=== PATIENT | female | born 1970 | race Native Hawaiian/Other Pacific Islander ===

== ENCOUNTER 2017-01-17 09:45 | Outpatient (CLI) | payer BC ==
[~2017-01-17 09:45] MED LIST: ALLEGRA-D 1212 HOUR PO; AMOX500C85 PO; CALCIU OR; FLUT0.05 NAS; MAGNESIUM300 MG OR; MUCINEX D1 TA1 OR; MULTI-DA1 PO; PEPCID40 MG PO; PRILOSEC10 MG OR; SUDAFED CH15 MG/5 ML PO
[2017-01-17 09:59] LABS: PLATELET COUNT 181 K/uL (152-353)
[2017-01-17 10:38] LABS: POTASSIUM 4.1 mmol/L (3.6-5.2); SODIUM 137 mmol/L (136-145)
== END 2017-01-17 10:45 | disposition home or self-care (01) ==
LOC: LABW 09:45
PROVIDERS: Internal Medicine Hematology & Oncology
DX: D64.9 Anemia, unspecified (principal)
CPT/HCPCS: 36415; 80053; 82728; 83540; 83550; 85027

== ENCOUNTER 2017-07-24 10:03 | Outpatient (CLI) | payer BC ==
[2017-07-24 11:12] LABS: POTASSIUM 3.8 mmol/L (3.6-5.2); SODIUM 139 mmol/L (136-145)
[2017-07-24 11:17] LABS: PLATELET COUNT 186 K/uL (152-353)
== END 2017-07-24 18:55 | disposition home or self-care (01) ==
LOC: LABW 10:03
PROVIDERS: Internal Medicine Hematology & Oncology
DX: E78.4 Other hyperlipidemia (principal); D64.9 Anemia, unspecified
CPT/HCPCS: 36415; 80053; 80061; 82728; 83540; 83550; 84443; 85027

== ENCOUNTER 2020-04-14 20:15 | Emergency (ER) | payer BC ==
[~2020-04-14] VITALS: Ht 167.6 cm; Wt 70.3 kg
[2020-04-14 21:54] VITALS: BP 141/68; TEMP 98
== END 2020-04-14 21:55 | disposition home or self-care (01) ==
LOC: ED 20:15
DX: R11.2 Nausea with vomiting, unspecified (principal); U07.1 COVID-19
CPT/HCPCS: 99282

== ENCOUNTER 2020-10-14 14:49 | Outpatient (CLI) | payer BC | END 2020-10-14 22:06 | disposition home or self-care (01) | LOC: RESP 14:49 | PROVIDERS: ATTEND Internal Medicine Cardiovascular Disease | DX: I10 Essential (primary) hypertension (principal) ==